=== PATIENT | female | born 1980 | race Caucasian/White ===

== ENCOUNTER 2018-07-02 19:06 | Emergency (ER) | payer OTHER, SELFPAY ==
[2018-07-02 19:09] VITALS: BP 118/72; PULSE 96; RESP 19; TEMP 37.7; O2SAT 94; BMI 33.8
--- NOTE | 2018-07-02 19:59 | ED.URI ---
HPI - URI/Sore Throat General Chief Complaint: Upper Respiratory Symptoms Stated Complaint: Thinks strep throat Time Seen by Provider: 07/02/18 19:09 Source: patient Mode of arrival: ambulatory Limitations: no limitations History of Present Illness HPI Narrative: This 38-year-old female was sent from walking clinic concerned for possible peritonsillar abscess. She developed onset of sore throat 2 days ago which has progressively worsened, to the point that she can take fluids but has not been able to swallow solid foods today. They were not able to get a strep swab or give oral steroids or antibiotics because she is not able to open her mouth well enough or swallow. She states that she has had fever up to 101 at home since yesterday. She does have nasal congestion. She has body aches all over. She denies any sinus pain or ear ache. She denies any cough, wheeze, chest pain or dyspnea. She denies any recent travel or known exposures. She did have her flu vaccine. She denies any possibility of as IUD is in place. Related Data Previous Rx's Medication Instructions Recorded clindamycin HCl 300 mg PO Q6H 7 Days #28 cap 07/02/18 dexamethasone 4 mg PO DAILY #5 tab 07/02/18 Allergies Allergy/AdvReac Type Severity Reaction Status Date / Time Penicillins [PENICILLINS] AdvReac Mild VOMITING Unverified 07/02/18 18:36 Review of Systems Review of Systems All systems reviewed & are unremarkable except as noted in HPI and below PFSH Surgical History History of (Chronic) History of failed repair of rotator cuff (Chronic) History of repair of left rotator cuff (Chronic) Social History Smoking Status: Current every day smoker Comment: occasional ETOH Exam Narrative Exam Narrative: GENERAL APPEARANCE: Patient sitting comfortably, in no distress. initially voice is somewhat muffled, normal at discharge. HEAD: No sinus TTP. EYES: PERRL, EOMI. EARS: Normal auditory canals, TMS intact with normal light reflexes. ORAL CAVITY: Normal oropharynx. THROAT: On initial exam only able to visualize a portion of the tonsils due to patient's inability to fully open her mouth, left is obviously enlarged and erythematous. Following steroid, able to visualize more of the tonsil which is enlarged, erythematous, without exudate, the portion of the uvula I can visualize appears midline NECK/THYROID: Neck supple, full range of motion, no cervical lymphadenopathy. LUNGS: Clear to auscultation bilaterally, clear to percussion, no cough on exam. HEART: RRR without murmur, nl S1, S2, no S3 or S4. Initial Vital Signs Initial Vital Signs: Vital Signs Temperature 99.9 F H 07/02/18 19:09 Pulse Rate 96 H 07/02/18 19:09 Respiratory Rate 19 07/02/18 19:09 Blood Pressure 118/72 07/02/18 19:09 Pulse Oximetry 94 07/02/18 19:09 Course Additional Information: Patient is feeling markedly improved at the time of discharge, able to speak and swallow comfortably. Still unable to quite fully visualized her oropharynx well tonight, but explained I suspect that there may not be an abscess, more just severe strep throat. I did advise follow-up with ENT tomorrow for recheck as I suspect swelling will continue to improve. She was given a dose of clindamycin for morning and will case picker prescriptions for this and dexamethasone tomorrow. She agreed to return if any acutely worsening symptoms again in the interim. Orders Ordered: ED Orders 07/02/18 19:55 Complete Blood Count AUTO DIFF Stat Comprehensive Metabolic Panel Stat Influenza A and B by PCR Rapid Stat Lactate (Lactic Acid) Stat Strep Grp A by PCR Rapid Stat Discontinued Medications Clindamycin HCl (Cleocin) 300 mg PO NOW ONE Stop: 07/02/18 21:56 Last Admin: 07/02/18 22:01 Dose: 300 mg Clindamycin Phosphate (Cleocin) 600 mg in 50 mls @ 50 mls/hr IV NOW ONE Stop: 07/02/18 21:09 Last Infusion: 07/02/18 21:35 Dose: 0 mls/hr Admin: 07/02/18 20:26 Dose: 50 mls/hr Dexamethasone 20 mg/ Sodium (Chloride) 52 mls @ 208 mls/hr IV NOW ONE Stop: 07/02/18 20:11 Last Infusion: 07/02/18 20:43 Dose: 0 mls/hr Admin: 07/02/18 20:26 Dose: 208 mls/hr Sodium Chloride (Normal Saline 0.9%) 1,000 mls @ 1,000 mls/hr IV BOLUS ONE Stop: 07/02/18 21:09 Last Infusion: 12/06/18 22:11 Dose: 0 mls/hr Admin: 07/02/18 20:26 Dose: 1,000 mls/hr Vital Signs - 8 hr 07/02/18 19:09 07/02/18 22:11 Temperature 99.9 F H 98.7 F Pulse Rate 96 H 88 Respiratory Rate 19 Blood Pressure 118/72 117/58 L Pulse Oximetry 94 97 MDM - URI/Sore Throat Lab Data Result diagrams: 07/02/18 19:55 07/02/18 19:55 Lab Results 07/02/18 07/02/18 07/02/18 Range/Units 19:55 19:55 19:55 WBC 17.3 H (4.5-11.0) X10^3/uL RBC 4.85 (4.0-5.2) X10^6/uL Hgb 14.5 (12.0-16.0) g/dL Hct 43.5 (36-46) % MCV 89.6 (80-100) fL MCH 30.0 (26-34) PG MCHC 33.5 (30-36) % RDW 13.6 (11.6-14.8) % Plt Count 269 (150-400) X10^3/uL Neut % (Auto) 76.2 H (50-75) % Lymph % (Auto) 15.4 L (25-40) % [place] % (Auto) 7.7 (3-14) % Eos % (Auto) 0.2 L (2-4) % Baso % (Auto) 0.5 (0-2) % Neut # (Auto) 15183 H (5947-0834) /uL Sodium 140 (137-145) mmol/L Potassium 3.6 (3.4-5.1) mmol/L Chloride 103 (98-107) mmol/L Carbon Dioxide 25 (22-32) mmol/L BUN 15 (7-17) mg/dL Creatinine 0.50 L (0.52-1.04) mg/dL Estimated GFR > 60.0 (>60) mL/min BUN/Creatinine Ratio 30.0 H (6-22) Glucose 87 (70-100) mg/dL Lactate 0.7 (0.7-2.1) mmol/L Calcium 9.6 (8.4-10.2) mg/dL Total Bilirubin 0.7 (0.2-1.3) mg/dL AST 15 (14-36) IU/L ALT 23 (9-52) IU/L Alkaline Phosphatase 72 (38-126) U/L Total Protein 8.0 (6.3-8.2) g/dL Albumin 4.6 (3.5-5.0) g/dL Globulin 3.4 (1.7-4.1) g/dL Albumin/Globulin Ratio 1.4 (1.0-2.8) Influenza A & B (PCR) (Negative) Group A Strep (PCR) 07/02/18 Range/Units 19:55 WBC (4.5-11.0) X10^3/uL RBC (4.0-5.2) X10^6/uL Hgb (12.0-16.0) g/dL Hct (36-46) % MCV (80-100) fL MCH (26-34) PG MCHC (30-36) % RDW (11.6-14.8) % Plt Count (150-400) X10^3/uL Neut % (Auto) (50-75) % Lymph % (Auto) (25-40) % [place] % (Auto) (3-14) % Eos % (Auto) (2-4) % Baso % (Auto) (0-2) % Neut # (Auto) (7475-8951) /uL Sodium (137-145) mmol/L Potassium (3.4-5.1) mmol/L Chloride (98-107) mmol/L Carbon Dioxide (22-32) mmol/L BUN (7-17) mg/dL Creatinine (0.52-1.04) mg/dL Estimated GFR (>60) mL/min BUN/Creatinine Ratio (6-22) Glucose (70-100) mg/dL Lactate (0.7-2.1) mmol/L Calcium (8.4-10.2) mg/dL Total Bilirubin (0.2-1.3) mg/dL AST (14-36) IU/L ALT (9-52) IU/L Alkaline Phosphatase (38-126) U/L Total Protein (6.3-8.2) g/dL Albumin (3.5-5.0) g/dL Globulin (1.7-4.1) g/dL Albumin/Globulin Ratio (1.0-2.8) Influenza A & B (PCR) Negative (Negative) Group A Strep (PCR) Positive H Discharge Plan Departure Patient Disposition: Home Clinical Impression: Abscess, peritonsillar, Strep throat Discharge Date/Time: 07/02/18 22:13 Interventions: ED Discharge Assessment Last Done: 07/02/18 22:11 Instructions: DI for Strep Throat, DI for Peritonsillar Abscess -- Adult Activity Restrictions/Additional Instructions: We have treated you for an abscess next to your tonsil tonight. It has been difficult to get a good look at your throat due to the pain and swelling . Since you are doing better, you can return home tonight. I have ordered a dose of antibiotic for you to take 1st thing in the morning, then please case picker your prescriptions at the pharmacy to continue. Please call [facility] 1st thing in the morning and let them know you were seen in the emergency room for peritonsillar abscess and need to follow up tomorrow. I have given you Dr. López' name since he is most often in [place], but you can see any of his colleagues. Remain off of work tomorrow. Your throat is looking better tonight with treatment and this may not be an abscess (you may not need any other treatment), but I would like you to have it checked tomorrow. you should return as we talked about if you have any acutely worsening symptoms again or new symptoms such as difficulty breathing. Prescriptions: New clindamycin HCl 300 mg capsule 300 mg PO Q6H 7 Days Qty: 28 RF: 0 dexamethasone 4 mg tablet 4 mg PO DAILY Qty: 5 RF: 0 Referrals: Miguel Nettles MD [Primary Care Provider] - Steven López MD [Physician] - Stand Alone Forms: Work Release Note
[2018-07-02 20:06] LABS: Add Manual Diff / Slide Review NO; Basophils Percent Auto 0.5 % (0-2); Eosinophils Percent Auto 0.2 % (2-4); Hematocrit 43.5 % (36-46); Hemoglobin 14.5 g/dL (12.0-16.0); Lymphocytes Percent Auto 15.4 % (25-40); Mean Corpuscular HGB Conc 33.5 % (30-36); Mean Corpuscular Volume 89.6 fL (80-100); Monocytes Percent Auto 7.7 % (3-14); Neutrophils Absolute Auto 13200 /uL (3000-5900); Neutrophils Percent Auto 76.2 % (50-75); Platelet Count 269 X10^3/uL (150-400); Red Blood Cell Count 4.85 X10^6/uL (4.0-5.2); Red Cell Distribution Width 13.6 % (11.6-14.8); White Blood Cell Count 17.3 X10^3/uL (4.5-11.0)
[2018-07-02 20:20] LABS: Alanine Aminotransferase 23 IU/L (9-52); Albumin 4.6 g/dL (3.5-5.0); Alkaline Phosphatase 72 U/L (38-126); Aspartate Aminotransferase 15 IU/L (14-36); Bilirubin Total 0.7 mg/dL (0.2-1.3); Blood Urea Nitrogen 15 mg/dL (7-17); Calcium 9.6 mg/dL (8.4-10.2); Carbon Dioxide 25 mmol/L (22-32); Chloride 103 mmol/L (98-107); Estimated Glomerular Filt Rate > 60.0 mL/min (>60); Glucose 87 mg/dL (70-100); Lactate (Lactic Acid) 0.7 mmol/L (0.7-2.1); Potassium 3.6 mmol/L (3.4-5.1); Sodium 140 mmol/L (137-145)
[2018-07-02 20:21] LABS: Albumin Globulin Ratio 1.4 (1.0-2.8); Globulin 3.4 g/dL (1.7-4.1); HEMOLYSIS < 15 (0-50)
[2018-07-02 20:24] LABS: Strep Grp A by PCR Rapid Positive
[2018-07-02] MEDS: SODIUM CHLORIDE 0.9% 1,000 ML 1000 ML IV (20:26)
[2018-07-02] MEDS: CLINDAMYCIN 600 MG/50 ML PIGGYBACK 50 MG IV (20:26)
[2018-07-02] MEDS: DEXAMETHASONE 20 MG in SODIUM CHLORIDE 0.9% 50 ML 208 ML IV (20:26)
[2018-07-02 20:28] LABS: Influenza A and B by PCR Rapid Negative (Negative)
[2018-07-02] MEDS: CLINDAMYCIN 150 MG CAPSULE 300 MG PO (22:01)
[2018-07-02 22:11] VITALS: BP 117/58; PULSE 88; TEMP 37.1; O2SAT 97
== END 2018-07-02 22:13 | disposition home or self-care (01) ==
PROVIDERS: Emergency Provider Internal Medicine; Family Provider Family Medicine; PCP Family Medicine
DX: J36 Peritonsillar abscess (principal)
CPT/HCPCS: 36591; 80053; 83605; 85025; 87400; 87651; 96361; 96365; 96368; 99283; 99284; J1100

== ENCOUNTER 2019-07-23 22:44 | Emergency (ER) | payer OTHER, SELFPAY ==
[2019-07-23 22:50] VITALS: BP 131/61; PULSE 77; RESP 15; TEMP 36.9; O2SAT 97; BMI 31.8
[2019-07-23] MEDS: SODIUM CHLORIDE 0.9% 1,000 ML 1000 ML IV (23:15)
[2019-07-23] MEDS: KETOROLAC 60 MG/2 ML VIAL 30 MG IV (23:15)
[2019-07-23] MEDS: ONDANSETRON 4 MG/2 ML INJ IV (23:15)
[2019-07-23 23:16] LABS: Add Manual Diff / Slide Review NO; Basophils Absolute Auto 100 /uL (0-100); Basophils Percent Auto 0.8 % (0-2); Eosinophils Absolute Auto 100 /uL (0-450); Eosinophils Percent Auto 0.6 % (2-4); Hemoglobin 13.5 g/dL (12.0-16.0); Lymphocytes Absolute Auto 4800 /uL (1100-4500); Lymphocytes Percent Auto 33.6 % (25-40); Mean Corpuscular HGB Conc 34.7 % (30-36); Mean Corpuscular Hemoglobin 31.2 PG (26-34); Mean Corpuscular Volume 89.7 fL (80-100); Monocytes Absolute Auto 1000 /uL (0-900); Neutrophils Absolute Auto 8200 /uL (1500-7000); Platelet Count 251 X10^3/uL (150-400); Red Blood Cell Count 4.34 X10^6/uL (4.0-5.2); White Blood Cell Count 14.1 X10^3/uL (4.5-11.0)
[2019-07-23 23:26] LABS: Alanine Aminotransferase 13 IU/L (<35); Albumin 4.3 g/dL (3.5-5.0); Albumin Globulin Ratio 1.5 (1.0-2.8); Alkaline Phosphatase 69 U/L (38-126); Aspartate Aminotransferase 17 IU/L (14-36); BUN Creatinine Ratio 22.5 (6-22); Bilirubin Total 0.3 mg/dL (0.2-1.3); Blood Urea Nitrogen 18 mg/dL (7-17); Carbon Dioxide 24 mmol/L (22-32); Chloride 104 mmol/L (98-107); Estimated Glomerular Filt Rate > 60.0 mL/min (>60); Globulin 2.9 g/dL (1.7-4.1); Glucose 104 mg/dL (70-100); HEMOLYSIS < 15 (0-50); Potassium 3.4 mmol/L (3.4-5.1); Sodium 138 mmol/L (137-145); Total Protein 7.2 g/dL (6.3-8.2)
--- NOTE | 2019-07-24 00:16 | PC.NURSE ---
Pt has hx of kidney stones 2 years ago,feels similar today
[2019-07-24] MEDS: ONDANSETRON 4 MG/2 ML INJ IV (00:28)
[2019-07-24] MEDS: LIDOCAINE 2% 6.1 ML in SODIUM CHLORIDE 0.9% 50 ML 336.6 ML IV (00:28)
--- NOTE | 2019-07-24 01:07 | DI.CT.S_ITS ---
PROCEDURE: CT ABDOMEN PELVIS W CON INDICATIONS: severe Right flank pain. Different than stones TECHNIQUE: After the administration of intravenous contrast, 5 mm thick sections acquired from the diaphragm to the symphysis. 5 mm coronal and sagittal reformats were acquired. For radiation dose reduction, the following was used: automated exposure control, adjustment of mA and/or kV according to patient size. COMPARISON: [facility], CT, KIDNEY/ URETER/BLADDER, 12/06/2013, 1:37. FINDINGS: Image quality: Excellent. ABDOMEN: Lung bases: Lung bases are clear. Heart size is normal. Solid organs: Liver is normal in size and enhancement. Gallbladder has been removed. Biliary system is non dilated. Pancreas enhances normally. Spleen is normal in size and enhancement. No adrenal nodules. There is an obstructing 4 mm stone seen within the distal right ureter, as on series 2 image 71. There is associated mild to moderate right-sided hydroureter and hydronephrosis. The kidneys enhance asymmetrically, with delayed enhancement on the right side. There is right-sided perinephric fat stranding. The limits of this contrast-enhanced examination, no nonobstructing renal stones can be seen. There is no left-sided hydronephrosis. Peritoneum and bowel: Bowel loops demonstrate normal wall thickness and caliber. No free fluid or air. Nodes and vessels: No retroperitoneal or mesenteric adenopathy by size criteria. Aorta and inferior vena cava are normal in size. Miscellaneous: No ventral hernias. PELVIS: Genitourinary: Bladder wall thickness is normal. An IUD is seen at its expected location. Cystic changes are seen of the ovaries, which are considered to be within physiologic limits. Miscellaneous: No inguinal hernias or adenopathy. Bones: No suspicious bony lesions. No vertebral body compression fractures. IMPRESSION: 4 mm obstructing stone seen within the distal right ureter, with associated hydroureter, hydronephrosis, and perinephric stranding. Incidental note is made of: Cholecystectomy IUD Note: No significant discrepancy from the preliminary report. Dictated by: Hernesto Pal M.D. on 07/24/2019 at 8:51 Transcribed by: KATHARINA on 07/24/2019 at 9:01 Approved by: Hernesto Pal M.D. on 07/24/2019 at 9:10
[2019-07-24 01:17] VITALS: BP 119/59; PULSE 74; RESP 16; TEMP 36.7; O2SAT 98
[2019-07-24] MEDS: HYDROMORPHONE 0.5 MG INJ IV (02:00)
[2019-07-24] MEDS: ONDANSETRON 4 MG ODT PREPACK 1 BOTTLE MISC (02:27)
[2019-07-24] MEDS: HYDROCODONE/ACET 5/325 PREPACK 1 BOTTLE MISC (02:27)
[2019-07-24 02:29] VITALS: BP 120/70; PULSE 74; RESP 18; O2SAT 96
--- NOTE | 2019-07-24 21:41 | ED_ITS ---
HPI - Female Genitourinary General Chief complaint: Urogenital-Female Stated complaint: PASSING KIDNEY STONE RIGHT SIDE Time Seen by Provider: 07/23/19 22:52 Source: patient Mode of arrival: Wheelchair Limitations: no limitations History of Present Illness HPI Narrative: 39-year-old femaleDaily smoker with history of kidney stones presents to the emergency department with a chief complaint of sudden onset right flank pain consistent with prior kidney stones. She denies fever or chills but does admit to some nausea. She states the pain largely seems to have a mind of its own but does seem to be a bit worse when she moved. It started in her back and radiates around her right flank MD Complaint: other Onset (ago): hour(s) Location: RLQ Female Urogenital Radiation: R Flank Severity: moderate Quality: Burning Duration: intermittent Relieving factors: none Exacerbating factors: movement Urinary symptoms: Flank Pain Patient : No Related Data Previous Rx's Medication Instructions Recorded hydrocodone-acetaminophen 1 tab PO Q4-6H PRN #10 tab 07/24/19 ketorolac 10 mg PO Q6H PRN #14 tab 07/24/19 ondansetron 4 mg PO TID-QID PRN #10 tab 07/24/19 tamsulosin [Flomax] 0.4 mg PO DAILY #10 cap 07/24/19 Allergies Allergy/AdvReac Type Severity Reaction Status Date / Time Penicillins [PENICILLINS] AdvReac Mild VOMITING Verified 07/23/19 22:55 Review of Systems Constitutional Constitutional: Denies chills, Denies fatigue, Denies fever(s), Denies frequent falls, Denies lethargy and Denies weakness Eyes Eyes: Denies change in vision, Denies eye discharge, Denies irritation and Denies loss of vision ENT Ears, Nose, Mouth, and Throat: Denies change in voice, Denies dizziness, Denies neck pain, Denies sore throat and Denies throat swelling Cardiovascular Cardiovascular: Denies chest pain, Denies irregular heart rhythm, Denies lightheadedness, Denies palpitations, Denies dyspnea, Denies dyspnea on exertion and Denies orthopnea Respiratory Respiratory: Denies cough, Denies dyspnea, Denies dyspnea on exertion and Denies wheezing Gastrointestinal Gastrointestinal: Denies abdominal pain, Denies change in bowel habits, Denies diarrhea, Denies nausea and Denies vomiting Genitourinary Genitourinary: Denies hematuria, Reports flank pain, Denies urinary incontinence and Denies urinary urgency Musculoskeletal Musculoskeletal: Denies back pain, Denies muscle weakness, Denies neck pain, Denies numbness and Denies tingling Integumentary/Breasts Skin/Breast: Denies pruritus, Denies erythema, Denies rash and Denies wounds Neurologic Neurologic: Denies behavioral changes, Denies confusion, Denies dizziness, Denies frequent falls, Denies loss of vision, Denies numbness, Denies tingling and Denies weakness Psychiatric Psychiatric: Denies anxiety, Denies behavioral changes, Denies confusion, Denies depression, Denies homicidal ideation and Denies suicidal ideation Endocrine Endocrine: Denies fatigue, Denies flushing and Denies palpitations Hematologic/Lymphatic Hematologic/Lymphatic: Denies easy bruising Allergic/Immunologic Allergic/Immunologic: Denies urticaria, Denies throat swelling and Denies wheezing Patient History Surgical History History of (Chronic) History of failed repair of rotator cuff (Chronic) History of repair of left rotator cuff (Chronic) alcohol intake frequency: a few times a month Substance Use Type: does not use Exam Narrative Exam Narrative: GENERAL: [39] year old patient appears stated age. Well- nourished, well-developed patient, in moderate distress, laying on her side, rocking back and forth HEAD: Atraumatic. Normocephalic. EYES: Pupils equal round and reactive. Extraocular motions intact. No scleral icterus. No injection or drainage. ENT: Nose without bleeding, purulent drainage. Throat without erythema, tonsillar hypertrophy or exudate. Airway patent. NECK: Trachea midline. Non tender CARDIOVASCULAR: Regular rate and rhythm without murmurs, gallops, or rubs. RESPIRATORY: Clear to auscultation. Breath sounds equal bilaterally. No wheezes, rales, or rhonchi. GASTROINTESTINAL: Abdomen soft, non-tender, nondistended. EXTREMITIES: No edema or joint tenderness. BACK: Mild right CVA tenderness NEURO: AOx3. SKIN: No rash or erythema of visible areas Initial Vital Signs Initial Vital Signs: Vital Signs Temperature 98.4 F 07/23/19 22:50 Pulse Rate 77 07/23/19 22:50 Respiratory Rate 15 07/23/19 22:50 Blood Pressure 131/61 07/23/19 22:50 Pulse Oximetry 97 07/23/19 22:50 Course Orders Ordered: Discontinued Medications Hydrocodone Bitart/Acetaminophen (Vicodin 5/325 Prepack) 1 bottle MISC SEEINSTR ONE Stop: 07/24/19 02:16 Last Admin: 07/24/19 02:27 Dose: 1 bottle Documented by: CHARLES Hydromorphone HCl (Dilaudid) 0.5 mg IV NOW ONE Stop: 07/24/19 01:47 Last Admin: 07/24/19 02:00 Dose: 0.5 mg Documented by: CHARLES Sodium Chloride (Normal Saline 0.9%) 1,000 mls @ 1,000 mls/hr IV BOLUS ONE Stop: 07/24/19 00:00 Last Infusion: 07/24/19 00:08 Dose: 0 mls/hr Documented by: Admin: 07/23/19 23:15 Dose: 1,000 mls/hr Documented by: TAJ Lidocaine HCl 6.1 ml/ Sodium (Chloride) 56.1 mls @ 336.6 mls/hr IV NOW ONE Stop: 07/24/19 00:24 Last Infusion: 07/24/19 00:47 Dose: 0 mls/hr Documented by: Admin: 07/24/19 00:28 Dose: 336.6 mls/hr Documented by: TAJ Ketorolac Tromethamine (Toradol) 30 mg IV NOW ONE Stop: 07/23/19 23:02 Last Admin: 07/23/19 23:15 Dose: 30 mg Documented by: TAJ Ondansetron HCl (Zofran) 4 mg IV NOW ONE Stop: 07/23/19 23:02 Last Admin: 07/23/19 23:15 Dose: 4 mg Documented by: TAJ Ondansetron HCl (Zofran) 4 mg IV NOW ONE Stop: 07/24/19 00:24 Last Admin: 07/24/19 00:28 Dose: 4 mg Documented by: TAJ Ondansetron HCl (Zofran Odt Prepack) 1 bottle MISC SEEINSTR ONE Stop: 07/24/19 02:16 Last Admin: 07/24/19 02:27 Dose: 1 bottle Documented by: CHARLES MDM - Female Genitourinary Lab Data Result diagrams: 07/23/19 23:07 07/23/19 23:07 Labs: Lab Results 07/23/19 07/23/19 Range/Units 23:07 23:07 WBC 14.1 H (4.5-11.0) X10^3/uL RBC 4.34 (4.0-5.2) X10^6/uL Hgb 13.5 (12.0-16.0) g/dL Hct 39.0 (36-46) % MCV 89.7 (80-100) fL MCH 31.2 (26-34) PG MCHC 34.7 (30-36) % RDW 13.0 (11.6-14.8) % Plt Count 251 (150-400) X10^3/uL Neut % (Auto) 58.0 (50-75) % Lymph % (Auto) 33.6 (25-40) % [place] % (Auto) 7.0 (3-14) % Eos % (Auto) 0.6 L (2-4) % Baso % (Auto) 0.8 (0-2) % Neut # (Auto) 8200 H (7621-2093) /uL Lymph # (Auto) 4800 H (5198-1562) /uL [place] # (Auto) 1000 H (0-900) /uL Eos # (Auto) 100 (0-450) /uL Baso # (Auto) 100 (0-100) /uL Sodium 138 (137-145) mmol/L Potassium 3.4 (3.4-5.1) mmol/L Chloride 104 (98-107) mmol/L Carbon Dioxide 24 (22-32) mmol/L BUN 18 H (7-17) mg/dL Creatinine 0.80 (0.52-1.04) mg/dL Estimated GFR > 60.0 (>60) mL/min BUN/Creatinine Ratio 22.5 H (6-22) Glucose 104 H (70-100) mg/dL Calcium 9.0 (8.4-10.2) mg/dL Total Bilirubin 0.3 (0.2-1.3) mg/dL AST 17 (14-36) IU/L ALT 13 (<35) IU/L Alkaline Phosphatase 69 (38-126) U/L Total Protein 7.2 (6.3-8.2) g/dL Albumin 4.3 (3.5-5.0) g/dL Globulin 2.9 (1.7-4.1) g/dL Albumin/Globulin Ratio 1.5 (1.0-2.8) Point of Care Testing Test Results Negative Urine Dip Bedside Urine Glucose Negative Bedside Urine Bilirubin - Negative Bedside Urine Ketone +/- 5 Urine Specific [place] 1.030 Bedside Urine Occult Blood - Negative Bedside Urine pH 6.0 Bedside Urine Protein +/- 15 Bedside Urine Urobilinogen - Negative Bedside Urine Nitrite - Negative Bedside Urine Leukocytes - Negative Esterase Imaging Data CT scan - abdomen/pelvis: Radiologist's Impression: [address] [address] [address] Scan Report Signed Patient: Ermelinda Ramirez CHAVEZ#: [id number] : 1980Acct:[id number] Age/Sex: 39 / FDate of Service: 07/24/19 Loc: ED Accession Number: [id number] Procedure: CT abdomen pelvis w con Ordering Provider: Miles Bergeron D.O. PROCEDURE: CT ABDOMEN PELVIS W CON INDICATIONS: severe Right flank pain. Different than stones TECHNIQUE: After the administration of intravenous contrast, 5 mm thick sections acquired from the diaphragm to the symphysis. 5 mm coronal and sagittal reformats were acquired. For radiation dose reduction, the following was used: automated exposure control, adjustment of mA and/or kV according to patient size. COMPARISON: [facility], CT, KIDNEY/ URETER/BLADDER, 12/06/2013, 1:37. FINDINGS: Image quality: Excellent. ABDOMEN: Lung bases: Lung bases are clear. Heart size is normal. Solid organs: Liver is normal in size and enhancement. Gallbladder has been removed. Biliary system is non dilated. Pancreas enhances normally. Spleen is normal in size and enhancement. No adrenal nodules. There is an obstructing 4 mm stone seen within the distal right ureter, as on series 2 image 71. There is associated mild to moderate right-sided hydroureter and hydronephrosis. The kidneys enhance asymmetrically, with delayed enhancement on the right side. There is right-sided perinephric fat stranding. The limits of this contrast-enhanced examination, no nonobstructing renal stones can be seen. There is no left-sided hydronephrosis. Peritoneum and bowel: Bowel loops demonstrate normal wall thickness and caliber. No free fluid or air. Nodes and vessels: No retroperitoneal or mesenteric adenopathy by size criteria. Aorta and inferior vena cava are normal in size. Miscellaneous: No ventral hernias. PELVIS: Genitourinary: Bladder wall thickness is normal. An IUD is seen at its expected location. Cystic changes are seen of the ovaries, which are considered to be within physiologic limits. Miscellaneous: No inguinal hernias or adenopathy. Bones: No suspicious bony lesions. No vertebral body compression fractures. IMPRESSION: 4 mm obstructing stone seen within the distal right ureter, with associated hydroureter, hydronephrosis, and perinephric stranding. Incidental note is made of: Cholecystectomy IUD Note: No significant discrepancy from the preliminary report. Dictated by: Hernesto Pal M.D. on 07/24/2019 at 8:51 Transcribed by: KATHARINA on 07/24/2019 at 9:01 Approved by: Hernesto Pal M.D. on 07/24/2019 at 9:10 Discharge Plan Departure Patient Disposition: Home Clinical Impression: Kidney stone on right side Discharge Date/Time: 07/24/19 02:30 Instructions: DI for Kidney Stones Activity Restrictions/Additional Instructions: *You have been diagnosed with [right-sided kidney stone, 3 mm] *What to do: *Take medications as directed *Follow up with your primary care provider in 2-3 days, call for an appointment. Let them know you were seen in the Emergency Department and that we ask that you be seen in follow up *Return to ER if you should have any new, worsening or concerning symptoms, such as [fever over 101 F, shaking chills, worsening pain, persistent vomiting or other bothersome symptoms] Prescriptions: New hydrocodone-acetaminophen 5-325 mg tablet 1 tab PO Q4-6H PRN (Reason: pain) Qty: 10 RF: 0 ketorolac 10 mg tablet 10 mg PO Q6H PRN (Reason: pain) Qty: 14 RF: 0 tamsulosin [Flomax] 0.4 mg capsule 0.4 mg PO DAILY Qty: 10 RF: 0 ondansetron 4 mg tablet,disintegrating 4 mg PO TID-QID PRN (Reason: nausea and vomiting) Qty: 10 RF: 0 Referrals: Alisa Edmondson MD [Non-Staff] - Miguel Nettles MD [Primary Care Provider] -
== END 2019-07-24 02:30 | disposition home or self-care (01) ==
PROVIDERS: Emergency Provider Emergency Medicine; Family Provider Family Medicine; PCP Family Medicine
DX: N20.0 Calculus of kidney (principal)
CPT/HCPCS: 36415; 74177; 80053; 81003; 81025; 85025; 96361; 96365; 96375; 96376; 99283; 99284; J1170; J1885; J2405; Q9967

== ENCOUNTER 2019-07-25 10:57 | Emergency (ER) | payer OTHER, SELFPAY ==
[2019-07-25 11:02] VITALS: BP 133/61; PULSE 74; RESP 16; TEMP 36.6; O2SAT 97; BMI 31.8
--- NOTE | 2019-07-25 11:23 | ED_ITS ---
HPI - Female Genitourinary <JARROD Orosco - Last Filed: 07/25/19 20:58> General Chief complaint: Urogenital-Female Stated complaint: passing a kidney stone with vomiting cant urinate Time Seen by Provider: 07/25/19 11:00 Mode of arrival: Ambulatory History of Present Illness HPI Narrative: 39yo female presents to the emergency department today complaining of increasing right flank pain. She was diagnosed with a 4 mm obstructing stone in the distal right ureter with hydroureter, hydronephrosis, and perinephric stranding three days ago in the emergency department. She was discharged with nausea medication, pain medication and tamsulosin. However, she reports yesterday the pain was improving but today the pain has been incr easingly worse. She reports increased nausea with vomiting. She denies abdominal pain, fevers, chills, chest pain, shortness of breath, or other concerns. She states she has a history of renal stones in the past but has never needed lithotripsy. Related Data Previous Rx's Medication Instructions Recorded hydrocodone-acetaminophen 1 tab PO Q4-6H PRN #10 tab 07/24/19 ketorolac 10 mg PO Q6H PRN #14 tab 07/24/19 ondansetron 4 mg PO TID-QID PRN #10 tab 07/24/19 tamsulosin [Flomax] 0.4 mg PO DAILY #10 cap 07/24/19 Allergies Allergy/AdvReac Type Severity Reaction Status Date / Time Penicillins [PENICILLINS] AdvReac Mild VOMITING Verified 07/23/19 22:55 Review of Systems <JARROD Orosco - Last Filed: 07/25/19 20:58> Review of Systems Narrative: REVIEW OF SYSTEMS: GENERAL: Denies fever, chills, malaise, or wt. loss. HENT: No head trauma, sore throat, or dysphagia. EYES: No loss of vision, double vision, eye pain, or irritation. CARDIOVASCULAR: No chest pain, palpitations, or orthopnea. RESPIRATORY: No shortness of breath or cough. GASTROINTESTINAL: Denies abdominal pain. GENITOURINARY: Reports right flank pain, see HPI. No urinary incontinence, hesitancy, frequency, or dysuria. No vaginal discharge or dyspareunia. Denies concerns for STIs MUSCULOSKELETAL: No pain, weakness, or trauma. INTEGUMENTARY: No rash, lesions, or pruritus. NEURO: No numbness, tingling, memory loss, confusion, or headaches. PSYCH: No behavior or mood changes. Patient History <Mia Allen TOBACCO DRYING MACHINE OPERATOR - Last Filed: 07/25/19 20:58> Medical History (Updated 07/26/19 @ 20:54 by Chayito Villarreal) Irregular menstrual cycle (Chronic ~1996) Surgical History (Updated 07/26/19 @ 20:54 by Chayito Villarreal) Anesthesia (Resolved) Avulsion, finger tip (Resolved) History of (Chronic) History of cholecystectomy (Resolved ~01/2003) History of failed repair of rotator cuff (Chronic) History of repair of left rotator cuff (Chronic) Family History (Updated 07/26/19 @ 20:55 by Chayito Villarreal) Grandmother Dementia alcohol intake frequency: a few times a month Substance Use Type: does not use Exam <Mia Allen TOBACCO DRYING MACHINE OPERATOR - Last Filed: 07/25/19 20:58> Initial Vital Signs Initial Vital Signs: Vital Signs Temperature 97.9 F 07/25/19 11:02 Pulse Rate 74 07/25/19 11:02 Respiratory Rate 16 07/25/19 11:02 Blood Pressure 133/61 07/25/19 11:02 Pulse Oximetry 97 07/25/19 11:02 PHYSICAL EXAMINATION: GENERAL: Well groomed, alert, and cooperative. Answers questions promptly and appropriately. Vital signs noted. HENT: Normocephalic, atraumatic. Hearing intact. Oral mucosa is pink and moist. EYES: Conjunctiva pink, sclera white, no periorbital swelling. CARDIOVASCULAR: S1 and S2 sounds normal. Regular rate and rhythm, no murmurs, clicks, or bruits. No pedal edema. RESPIRATORY: Normal respiratory rate, trachea midline, airway patent. No stridor, nasal flaring or accessory muscle use. Lungs are clear in all stauffer without wheeze, rhonchi, or crackles. GASTROINTESTINAL: Bowel sounds normoactive. Abdomen is soft and non-tender. No organomegaly, no palpable masses. GENITALURINARY: Right flank tenderness. MUSCULOSKELETAL: Normal gait and coordination. Equal tone and mass bilaterally. EXTREMITIES: CMS intact, no pedal edema. SKIN: Warm, dry, soft, appropriate color for ethnicity. No lesions, rashes, or wounds. NEURO: Alert and Oriented X 3. Good coordination. No ataxia, or sensory deficits, or cognitive issues. PSYCH: Appropriate affect and mood. <Jennie Caldwell DO - Last Filed: 07/28/19 07:57> Initial Vital Signs Initial Vital Signs: Vital Signs Temperature 97.9 F 07/25/19 11:02 Pulse Rate 74 07/25/19 11:02 Respiratory Rate 16 07/25/19 11:02 Blood Pressure 133/61 07/25/19 11:02 Pulse Oximetry 97 07/25/19 11:02 Course <Mia AllenJARROD - Last Filed: 07/25/19 20:58> Course Course Narrative: Patient was given a L of fluids in the emergency department, before she was given pain meds she got up to walk to the bathroom and states I think I passed a stone. Patient states her pain has completely resolved. She declined pain medication at this time. Orders Ordered: Discontinued Medications Hydromorphone HCl (Dilaudid) 0.5 mg IV NOW ONE Stop: 07/25/19 11:22 Last Admin: 07/25/19 13:02 Dose: Not Given Documented by: JOSE Sodium Chloride (Normal Saline 0.9%) 1,000 mls @ 1,000 mls/hr IV BOLUS ONE Stop: 07/25/19 12:19 Last Infusion: 07/25/19 13:01 Dose: 0 mls/hr Documented by: Admin: 07/25/19 12:27 Dose: 1,000 mls/hr Documented by: JOSE Ondansetron HCl (Zofran) 4 mg IV NOW ONE Stop: 07/25/19 11:21 Last Admin: 07/25/19 13:01 Dose: Not Given Documented by: JOSE Consultations Consultation #1: Patient staffed with Dr. Caldwell Vital Signs Vital signs: Vital Signs - 8 hr 07/25/19 13:06 Pulse Rate 70 Respiratory Rate 16 Blood Pressure 111/66 Pulse Oximetry 100 <Jennie Caldwell DO - Last Filed: 07/28/19 07:57> Orders Ordered: Discontinued Medications Hydromorphone HCl (Dilaudid) 0.5 mg IV NOW ONE Stop: 07/25/19 11:22 Last Admin: 07/25/19 13:02 Dose: Not Given Documented by: JOSE Sodium Chloride (Normal Saline 0.9%) 1,000 mls @ 1,000 mls/hr IV BOLUS ONE Stop: 07/25/19 12:19 Last Infusion: 07/25/19 13:01 Dose: 0 mls/hr Documented by: Admin: 07/25/19 12:27 Dose: 1,000 mls/hr Documented by: JOSE Ondansetron HCl (Zofran) 4 mg IV NOW ONE Stop: 07/25/19 11:21 Last Admin: 07/25/19 13:01 Dose: Not Given Documented by: JOSE Vital Signs Vital signs: Vital Signs - 8 hr 07/25/19 13:06 Pulse Rate 70 Respiratory Rate 16 Blood Pressure 111/66 Pulse Oximetry 100 MDM - Female Genitourinary <JARROD Orosco - Last Filed: 07/25/19 20:58> Medical Records Attestation: I reviewed the patient's medical records. Lab Data Attestation: I reviewed the patient's lab results. Result diagrams: 07/25/19 12:18 07/25/19 12:18 Labs: Lab Results 07/25/19 07/25/19 07/25/19 Range/Units 12:18 12:18 12:30 WBC 12.8 H (4.5-11.0) X10^3/uL RBC 4.35 (4.0-5.2) X10^6/uL Hgb 13.5 (12.0-16.0) g/dL Hct 39.7 (36-46) % MCV 91.5 (80-100) fL MCH 31.0 (26-34) PG MCHC 33.9 (30-36) % RDW 12.9 (11.6-14.8) % Plt Count 229 (150-400) X10^3/uL Neut % (Auto) 79.7 H D (50-75) % Lymph % (Auto) 12.5 L D (25-40) % Jennings % (Auto) 6.9 (3-14) % Eos % (Auto) 0.4 L (2-4) % Baso % (Auto) 0.5 (0-2) % Neut # (Auto) 99884 H (4982-3146) /uL Lymph # (Auto) 1600 (5769-5191) /uL Jennings # (Auto) 900 (0-900) /uL Eos # (Auto) 100 (0-450) /uL Baso # (Auto) 100 (0-100) /uL Sodium 139 (137-145) mmol/L Potassium 4.7 D (3.4-5.1) mmol/L Chloride 105 (98-107) mmol/L Carbon Dioxide 28 (22-32) mmol/L BUN 16 (7-17) mg/dL Creatinine 1.00 (0.52-1.04) mg/dL Estimated GFR > 60.0 (>60) mL/min BUN/Creatinine Ratio 16.0 (6-22) Glucose 88 (70-100) mg/dL Calcium 9.1 (8.4-10.2) mg/dL Total Bilirubin 0.6 (0.2-1.3) mg/dL AST 22 (14-36) IU/L ALT 12 (<35) IU/L Alkaline Phosphatase 69 (38-126) U/L Total Protein 7.2 (6.3-8.2) g/dL Albumin 4.1 (3.5-5.0) g/dL Globulin 3.1 (1.7-4.1) g/dL Albumin/Globulin Ratio 1.3 (1.0-2.8) Urine RBC 30-100/hpf H (0-5/HPF) Urine WBC 5-10/hpf H (0-5/HPF) Ur Squamous Epith Cells 1-5 /hpf (0-5/HPF) Amorphous Sediment 2+ Urine Bacteria Moderate (10-30) H (None) Ur Culture Indicated? Specimen cultured Urine Dip Bedside Urine Glucose Negative Bedside Urine Bilirubin - Negative Bedside Urine Ketone - Negative Bedside Urine Occult Blood +++ Bedside Urine pH 6.0 Bedside Urine Protein + 30 Bedside Urine Urobilinogen - Negative Bedside Urine Nitrite - Negative Bedside Urine Leukocytes +/- 15 Esterase MDM Narrative Medical decision making narrative: 39-year-old female with a history of an obstructing 4 mm renal stone, returns emergency department for worsening pain. After administration of fluids patient reported that she believes she passed her stone. Her pain completely resolved. No imaging was done at this time as labs x-ray showed improved renal functioning. Patient still encouraged to follow up with her urologist as scheduled. Return precautions were given for new or worsening symptoms. Patient agreed with plan of care verbalized understanding. <Jennie Caldwell, DO - Last Filed: 07/28/19 07:57> Lab Data Attestation: I reviewed the patient's lab results. Labs: Lab Results 07/25/19 07/25/19 07/25/19 Range/Units 12:18 12:18 12:30 WBC 12.8 H (4.5-11.0) X10^3/uL RBC 4.35 (4.0-5.2) X10^6/uL Hgb 13.5 (12.0-16.0) g/dL Hct 39.7 (36-46) % MCV 91.5 (80-100) fL MCH 31.0 (26-34) PG MCHC 33.9 (30-36) % RDW 12.9 (11.6-14.8) % Plt Count 229 (150-400) X10^3/uL Neut % (Auto) 79.7 H D (50-75) % Lymph % (Auto) 12.5 L D (25-40) % Jennings % (Auto) 6.9 (3-14) % Eos % (Auto) 0.4 L (2-4) % Baso % (Auto) 0.5 (0-2) % Neut # (Auto) 30481 H (2152-7208) /uL Lymph # (Auto) 1600 (3420-0113) /uL Jennings # (Auto) 900 (0-900) /uL Eos # (Auto) 100 (0-450) /uL Baso # (Auto) 100 (0-100) /uL Sodium 139 (137-145) mmol/L Potassium 4.7 D (3.4-5.1) mmol/L Chloride 105 (98-107) mmol/L Carbon Dioxide 28 (22-32) mmol/L BUN 16 (7-17) mg/dL Creatinine 1.00 (0.52-1.04) mg/dL Estimated GFR > 60.0 (>60) mL/min BUN/Creatinine Ratio 16.0 (6-22) Glucose 88 (70-100) mg/dL Calcium 9.1 (8.4-10.2) mg/dL Total Bilirubin 0.6 (0.2-1.3) mg/dL AST 22 (14-36) IU/L ALT 12 (<35) IU/L Alkaline Phosphatase 69 (38-126) U/L Total Protein 7.2 (6.3-8.2) g/dL Albumin 4.1 (3.5-5.0) g/dL Globulin 3.1 (1.7-4.1) g/dL Albumin/Globulin Ratio 1.3 (1.0-2.8) Urine RBC 30-100/hpf H (0-5/HPF) Urine WBC 5-10/hpf H (0-5/HPF) Ur Squamous Epith Cells 1-5 /hpf (0-5/HPF) Amorphous Sediment 2+ Urine Bacteria Moderate (10-30) H (None) Ur Culture Indicated? Specimen cultured Urine Dip Bedside Urine Glucose Negative Bedside Urine Bilirubin - Negative Bedside Urine Ketone - Negative Bedside Urine Occult Blood +++ Bedside Urine pH 6.0 Bedside Urine Protein + 30 Bedside Urine Urobilinogen - Negative Bedside Urine Nitrite - Negative Bedside Urine Leukocytes +/- 15 Esterase MDM Narrative Medical decision making narrative: Patient staffed with myself. Repeat imaging was deferred as patient's renal function appears to be a baseline without any increase. Patient felt that they passed the stone while they were department and urine was cultured. Discharge Plan Departure Patient Disposition: Home Clinical Impression: Kidney stone on right side Discharge Date/Time: 07/25/19 13:10 Instructions: DI for Kidney Stones Activity Restrictions/Additional Instructions: Thank you for entrusting me with your care today. As discussed, please follow-up with the urologist as planned. Continue to drink lots of fluids. Continue to take tamsulosin. You may continue to take pain and nausea medication as needed. Return emergency department if he develops new or worsening symptoms such as f vianca, chills, nausea, vomiting, diarrhea, or other concerns. Prescriptions: No Action hydrocodone-acetaminophen 5-325 mg tablet 1 tab PO Q4-6H PRN (Reason: pain) Qty: 10 RF: 0 ketorolac 10 mg tablet 10 mg PO Q6H PRN (Reason: pain) Qty: 14 RF: 0 tamsulosin [Flomax] 0.4 mg capsule 0.4 mg PO DAILY Qty: 10 RF: 0 ondansetron 4 mg tablet,disintegrating 4 mg PO TID-QID PRN (Reason: nausea and vomiting) Qty: 10 RF: 0 Referrals: Miguel Nettles MD [Primary Care Provider] -
[2019-07-25] MEDS: SODIUM CHLORIDE 0.9% 1,000 ML 1000 ML IV (12:27)
[2019-07-25 12:30] LABS: Add Manual Diff / Slide Review NO; Basophils Absolute Auto 100 /uL (0-100); Basophils Percent Auto 0.5 % (0-2); Eosinophils Absolute Auto 100 /uL (0-450); Eosinophils Percent Auto 0.4 % (2-4); Hematocrit 39.7 % (36-46); Hemoglobin 13.5 g/dL (12.0-16.0); Lymphocytes Absolute Auto 1600 /uL (1100-4500); Lymphocytes Percent Auto 12.5 % (25-40); Mean Corpuscular HGB Conc 33.9 % (30-36); Mean Corpuscular Volume 91.5 fL (80-100); Monocytes Absolute Auto 900 /uL (0-900); Monocytes Percent Auto 6.9 % (3-14); Neutrophils Absolute Auto 10200 /uL (1500-7000); Neutrophils Percent Auto 79.7 % (50-75); Platelet Count 229 X10^3/uL (150-400); Red Blood Cell Count 4.35 X10^6/uL (4.0-5.2); Red Cell Distribution Width 12.9 % (11.6-14.8); White Blood Cell Count 12.8 X10^3/uL (4.5-11.0)
[2019-07-25 12:44] LABS: Alanine Aminotransferase 12 IU/L (<35); Albumin 4.1 g/dL (3.5-5.0); Albumin Globulin Ratio 1.3 (1.0-2.8); Alkaline Phosphatase 69 U/L (38-126); Aspartate Aminotransferase 22 IU/L (14-36); Bilirubin Total 0.6 mg/dL (0.2-1.3); Blood Urea Nitrogen 16 mg/dL (7-17); Calcium 9.1 mg/dL (8.4-10.2); Carbon Dioxide 28 mmol/L (22-32); Chloride 105 mmol/L (98-107); Estimated Glomerular Filt Rate > 60.0 mL/min (>60); Globulin 3.1 g/dL (1.7-4.1); Glucose 88 mg/dL (70-100); HEMOLYSIS < 15 (0-50); Potassium 4.7 mmol/L (3.4-5.1); Sodium 139 mmol/L (137-145); Total Protein 7.2 g/dL (6.3-8.2)
[2019-07-25 13:06] VITALS: BP 111/66; PULSE 70; RESP 16; O2SAT 100
[2019-07-25 13:10] LABS: Amorphous Sediment Urine 2+; Bacteria Urine Moderate (10-30); Culture Indicated Urine Specimen Cultured; RBC Urine 30-100/HPF (0-5/HPF); Squamous Epithelial Cell Urine 1-5 /HPF (0-5/HPF); WBC Urine 5-10/HPF (0-5/HPF)
== END 2019-07-25 13:10 | disposition home or self-care (01) ==
PROVIDERS: Emergency Provider Nurse Practitioner; Family Provider Family Medicine; PCP Family Medicine
DX: N20.0 Calculus of kidney (principal)
CPT/HCPCS: 36415; 80053; 81003; 81015; 85025; 87086; 96360; 99284; J1170; J2405

== ENCOUNTER 2019-08-27 06:50 | Day surgery (SDC) | payer OTHER, SELFPAY ==
[2019-08-17 14:21] VITALS: BMI 33.5
[2019-08-27] VITALS (8 sets, daily range): BP systolic 109–131; BP diastolic 60–94; PULSE 65–85; RESP 12–20; TEMP 36–36.6; O2SAT 98–100; BMI 33.5
--- NOTE | 2019-08-27 | PATH_ITS ---
[facility] Accession Number: [id number] . 01 Material submitted: . fallopian tube - BILATERAL FALLOPIAN TUBES . 02 Diagnosis: Bilateral Fallopian Tubes, Bilateral Salpingectomy: Complete cross sections of fallopian tubes x2 with no significant histomorphologic abnormality; negative for atypia or malignancy. . MRV 08/30/2019 1628 Local . 02 Electronically signed: . Vaishali Dennis MD, Pathologist NPI- [id number] . 01 Gross description: . Received one formalin-filled container, labeled with the patient's name and labeled bilateral fallopian tubes. The specimen consists of two fimbriated, cylindrical-shaped portions of tissue. The first measures 4.0 x 0.5 x 0.5 cm; inked blue. Four enrollment representative sections are submitted in cassette A1. The second piece measures 4.6 x 0.7 x 0.5 cm; inked black. Four enrollment representative sections are submitted in cassette A2. ([id number]) /Marcello 08/28/2019 0822 Local . 02 Pathologist provided ICD-10: Z30.2 . 02 CPT . 803956 Performed at: 01 [facility] [address], [place], [place] [id number] MD Hector Reeves MD Phone: [phone] Performed at: 02 [facility] [address] [place], [place] [id number] MD Kia Starr MD Phone: [phone]
[2019-08-27] MEDS: LACTATED RINGERS 1,000 ML 100 ML IV (07:05)
--- NOTE | 2019-08-27 07:43 | PM.PREOP ---
Pre-operative Note Interval Note History & Physical reviewed/Exam performed by Physician: Yes Changes to H&P: No
--- NOTE | 2019-08-27 08:20 | SUR.OPER ---
Lithotomy on padded OR bed, head on pillow, Right arm secured on padded arm board at <90 degrees abduction, Left arm padded and tucked at side. Legs secured in padded yellow fins stirrups.
[2019-08-27] MEDS: LIDOCAINE 1% 30 ML INJ (08:27)
[2019-08-27] MEDS: LACTATED RINGERS 1,000 ML 42 ML IV (08:58)
--- NOTE | 2019-08-27 09:19 | PM.OP.1 ---
Operative Date/Time/Diagnoses Date of procedure: 08/27/19 Time of procedure: 07:45 Pre-op diagnosis: Desire for permanent sterilization, history of heavy menses. Post-op diagnosis: same Procedure & Clinicians Procedure: Laparoscopic bilateral salpingectomy, removal and replacement of Mirena IUD. Same procedure as scheduled: Yes Indications: Desire for permanent sterilization, history of heavy menses managed by Mirena IUD. Surgeon: Monique Mariano Yard Demurrage Clerk: Miguelito Corona Anesthesia Type: General Operative Notes Findings: Normal vulva, vagina, cervix. Right ovary with 2 cm simple cyst with corpus luteum, left ovary normal, tubes and uterus normal. Small omental adhesion at prior section site, abdominal survey otherwise normal a beginning and end of case. Closure Type: primary Specimen(s): other (Bilateral fallopian tubes) Applied: catheter Estimated Blood Loss (mL): 20 Procedure in detail: After proper consents were obtained and a test was negative, the patient was taken to the operating room where general anesthesia was successfully obtained. She was placed in the dorsal lithotomy position and prepped and draped in the normal sterile fashion. A Claudio catheter was inserted in the bladder. A speculum was placed in the patient's vagina, where the cervix was visualized. The ring forceps was used to grasp the visible IUD strings and remove the patient's Mirena in 1 piece. A tenaculum was placed on the anterior lip of the cervix, and Hegar dilators used to dilate the cervix to 7 mm. A Zumi manipulator was placed within the uterus and the balloon inflated with ease. This tenaculum was removed from the cervix, and the speculum removed from the vagina. Attention was then turned to the abdomen, where 1 cc of 1% lidocaine was infiltrated just inferior to the umbilicus. A scalpel used to make a 5 mm skin incision, and towel clamps were applied on either side of the incision and used to elevate the abdominal wall. A Veress needle was gently introduced and the a drop of saline used to confirm intraperitoneal placement. Gas tubing was attached, and CO2 was used to insufflate the abdomen to pressure of 15 mm of mercury. A 5 mm trocar and sleeve were advanced into the abdomen, the trocar removed, and a 5 mm laparoscoped used to confirm intraperitoneal placement. An abdominal survey was normal at this time, and 5 mm trocars were introduced on the right and left sides of the patient's abdomen in line with the umbilicus under direct visualization with the same procedure as above. The patient was placed in moderate Trendelenburg positioning and the pelvis cleared of all bowel, and a bowel grasper was used to elevate the right fallopian tube. A PK device was used to cauterize and cut the mesosalpinx just inferior to the fallopian tube, and the fallopian tube was amputated from the uterus with the same device. Good hemostasis was noted. Attention was then turned to the patient's left side, where the same procedure was performed without complication. Good hemostasis was noted. Both fallopian tubes were removed via the lateral ports, and an abdominal survey was performed at the end of the case and found to be normal. The ports were removed from the abdomen and the air allowed to escape, and the incision sites were closed with 1 stitch of 4 0 Monocryl at each site. Steri-Strips and bandages were applied over each port site, with good hemostasis at each. Attention was then returned to the perineum, where the speculum was reinserted in the vagina. The uterine manipulator was deflated and removed, and a tenaculum used to grasp the anterior lip of the cervix. The uterus was gently sounded to 7 cm, and the Mirena inserted without difficulty using the Mirena insertion device. The strings were trimmed to 2 cm. The tenaculum was removed from the anterior lip of the cervix with good hemostasis of the tenaculum sites. The speculum was removed from the vagina, and the Claudio catheter was removed. The patient tolerated the procedure well, was taken to the PACU in stable condition. Complications: none Post-operative Condition: stable Disposition: PACU Plan for aftercare: The patient and her were instructed to use Motrin and expect mild to moderate vaginal bleeding. Postoperative precautions were discussed, the patient has a history of severe postoperative nausea and was supplied with with ODT Zofran. All questions were answered.
[2019-08-27] MEDS: HYDROMORPHONE 2 MG INJ IV ×2 (09:32→09:40)
[2019-08-27] MEDS: OXYCODONE/ACETAMINOPHEN 5/325 TABLET 1 TAB PO (09:48)
--- NOTE | 2019-08-27 10:53 | SUR.PHASEII ---
Addendum entered by Safia Juarez R.N. 08/27/19 10:59: Two tiny red spots on arabella-pad Original Note: 1045 Pt requested to go home, confirmed w/Meena Land RN that patient may go. Alert, oriented, pain 2/10 w/mild cramping. Skin warm and dry, Resp unlabored, no nausea, no vag flow.
== END 2019-08-27 10:55 | disposition home or self-care (01) ==
PROVIDERS: Family Provider Family Medicine; PCP Family Medicine; Visit Provider Obstetrics & Gynecology
PROC: (CPT 58661; principal; 2019-08-27 07:45)
PROC: (CPT 58661; 2019-08-27 07:45)
DX: Z30.2 Encounter for sterilization (principal); Z30.433 Encounter for removal and reinsertion of intrauterine contraceptive device; N83.11 Corpus luteum cyst of right ovary; K66.0 Peritoneal adhesions (postprocedural) (postinfection)
CPT/HCPCS: 58661; 58301; 58300; J0330; J1100; J1170; J1885; J2405; J2704; J2765; J3010; J7298

== ENCOUNTER → 2020-08-22 16:03 | Outpatient (CLI) | payer OTHER, SELFPAY ==
[2020-08-22 16:45] LABS: COVID19 -Nasal RAPID Negative (Negative)
== END ==
PROVIDERS: Family Provider Family Medicine; PCP Family Medicine; Visit Provider Obstetrics & Gynecology
DX: Z20.822 Contact with and (suspected) exposure to COVID-19 (principal)
CPT/HCPCS: 87635

== ENCOUNTER 2020-08-24 08:29 | Day surgery (SDC) | payer OTHER, SELFPAY ==
[2020-08-24] VITALS (17 sets, daily range): BP systolic 107–141; BP diastolic 51–73; PULSE 85–100; RESP 10–19; TEMP 36.3–37.1; O2SAT 94–100; BMI 32.5
--- NOTE | 2020-08-24 | PATH_ITS ---
[facility] Accession Number: [id number] . 01 Material submitted: . uterus - UTERUS AND PIECES OF BILATERAL FALLOPIAN TUBES . 02 Diagnosis: Uterus and Pieces of Bilateral Fallopian Tubes, Hysterectomy and Completion Bilateral Salpingectomy: 1. Weak proliferative endometrium with pseudodecidualization, consistent with exogenous hormone effect. 2. Superficial adenomyosis. 3. Multiple detached fragments of blood vessels and myometrium. -No tubal epithelium identified. 5. No evidence of neoplasia or hyperplasia. V 08/30/2020 1605 Local . 02 Electronically signed: . Kia Starr MD, Pathologist NPI- [id number] . 01 Gross description: . The specimen is received in formalin, labeled uterus and pieces of fallopian tube and consists of a 45 gram fragmented uterus measuring 10.0 x 7.0 x 4.7 cm in aggregate. A cervix is not identified. The serosa is roberts-pink and smooth. There is a scant amount of identifiable roberts-pink endometrium measuring 0.1 cm in thickness. The myometrium is roberts-pink and trabeculated. Also received are multiple roberts-pink fragments of soft tissue which on cut surface appear to be vessels and possible fragments of fallopian tubes. Multigraph Operator sections are submitted. . A1-A4: uterus to include candidate endometrium, myometrium and serosa. A5: additional soft tissue fragments, entirely submitted. A6-A9: additional sections of uterus. ([id number]) /MRV 08/29/2020 1314 Local . 02 Pathologist provided ICD-10: N93.9, N80.0 . 02 CPT . 912506 Performed at: 01 [facility] [address] [id number] MD Hector Reeves MD Phone: [phone] Performed at: 02 [facility] [address] [place] [id number] MD Kia Starr MD Phone: [phone]
[2020-08-24] MEDS: LACTATED RINGERS 1,000 ML 100 ML IV ×2 (08:52→11:16)
--- NOTE | 2020-08-24 09:36 | PM.PREOP ---
Pre-operative Note COVID-19 COVID-19 status: Negative Result date/Date tested (Pos, Neg/Pending): 08/22/20 Interval Note History & Physical reviewed/Exam performed by Physician: Yes Changes to H&P: No
[2020-08-24] MEDS: APREPITANT 40 MG CAPSULE PO (09:44)
[2020-08-24] MEDS: MIDAZOLAM 2 MG/2 ML VIAL IV (09:44)
[2020-08-24] MEDS: CEFAZOLIN 2 GM/100 ML FROZ.PIGGY IV (09:56)
--- NOTE | 2020-08-24 10:48 | SUR.OPER ---
Lithotomy on padded OR bed. [place]eck Pad Positioner under torso. Head on pillow, arms padded and tucked at sides. Legs secured in padded yellow fins stirrups.
[2020-08-24] MEDS: BUPIVACAINE 0.25% W/ EPI (PF) 10 ML VIAL 30 ML INJ (11:03)
[2020-08-24] MEDS: ROPIVACAINE 0.2% PF 2 MG/ML 10ML AMP 20 ML INJ (11:22)
--- NOTE | 2020-08-24 11:41 | PM.OP.1 ---
Operative Date/Time/Diagnoses Date of procedure: 08/24/20 Time of procedure: 10:00 Pre-op diagnosis: Abnormal uterine bleeding Post-op diagnosis: same Procedure & Clinicians Procedure: Laparoscopic supracervical hysterectomy Same procedure as scheduled: Yes Indications: Abnormal uterine bleeding Surgeon: Monique Mariano Certified Control Systems Technician: Valeria Perez Anesthesia Type: General Operative Notes Findings: Normal uterus and ovaries. Omental adhesions cephalad to port site locations. Otherwise normal abdominal survey beginning and end of case. Closure Type: primary Specimen(s): other (Uterus, remnants of fallopian tube) Estimated Blood Loss (mL): 25 Procedure in detail: After proper consents were obtained, the patient was taken to the operating room. General anesthesia was induced, and she was placed in the dorsal lithotomy position and prepped and draped in the normal sterile fashion. A lucio catheter was placed, and a speculum placed in the patient's vagina. A single tooth tenaculum was applied to the anterior lip of the cervix, and hegar dilators used to dilate the cervix to 6mm with gentle pressure. IUD strings were not initially visible, but the IUD was able to be grasped and removed with polyp forceps. A uterine manipulator was gently inserted and the balloon inflated to 5ccs. The tenaculum and speculum were removed from the vagina. Attention was then turned to the abdomen, where 1cc of .25% marcaine with epinephrine was used to infiltrate the skin just below the umbilicus. A scalpel was used to make a 5mm incision, towel clamps were applied and used to elevate the anterior abdominal wall, and a Veress needle gently inserted into the abdomen. Intraperitoneal placement was confirmed with a drop of normal saline passed through the veress needle with gravity, and CO2 used to insufflate the abdomen to 15mmHg. A 5mm trocar and sleeve were placed into the abdomen through this incision, using the towel clamps to elevate the abdominal wall, and intraperitoneal placement was confirmed visually with insertion of the laparoscope. Abdominal survey at this time was normal except for the above finding, and lateral ports were placed under direct visualization. These were placed on the left and right, 8cm from the umbilicus and after infiltration of 1mm of local anesthetic as above. The patient was placed in trendelenburg position, and a blunt probe used to gently push the bowel out of the pelvis. The ovaries and fallopian tube remnants appeared normal bilaterally. A atraumatic grasper was used to elevate uterus by grasping the remnant of the right fallopian tube, and a PK device was used to transect and cut the uteroovarian ligament and round ligaments. The anterior and posterior leaflets of the broad ligament and skeletonized and the vesicouterine peritoneum identified. This was transected and a bladder flap created with the PK device and gentle traction. The uterine arteries were identified, and cauterized and cut at the level of the internal os. The same procedure was performed on the patient's left, without complication. The Ender loop was inserted into the abdomen, and placed around the uterus at the level of the internal os. After careful inspection for proper placement anteriorly and posteriorly, this device was used to amputate the uterine fundus without complication. The PK device was used to ablate the cervical os, and hemostasis achieved where necessary with the PK device. Attention was then turned to the abdominal wall, where .25% marcaine with epinephrine was used to infiltrate a midline area 2cm above the pubic symphesis. A scalpel was used to make a 3cm minilaparotomy, and a 15mm trocar and sleeve inserted under direct visualization into the abdominal cavity. A 12mm endocatch bag was placed through this port under direct visualization, and carefully deployed into the abdomen. The uterus was placed in the bag, and the bag was closed and removed under direct visualization of all parts of the bag. The open end of the bag was removed through the port, the port was removed, and the open end of the endocatch bag brought through the incision. A small Kyle device was inserted to protect the incision and skin, and the uterus was brought to the opening of the incision and carefully hand morcellated out through the incision using a scalpel. After removal of the uterus, the kyle device and endocatch bag were removed. The fascia at the minilaparotomy incision was closed using 0 vicryl in a running fashion. The abdomen was re-insufflated, hemostasis at the operative sites assured, and a repeat abdominal survey was normal. 30 cc of dilute ropivacaine was applied over the surgical sites intra-abdominally. The laparoscope was removed from the abdomen, the insufflating gas allowed to escape, and the ports removed. an interrupted suture was used at the mini-laparotomy to close the subcutaneous space in an interrupted fashion, and the skin at all 4 incisions closed with 4-0 biosyn, then covered with steri strips and bandages. The lucio catheter was removed from the bladder. The patient tolerated the procedure well, all counts were correct, 2g of Ancef were given at the beginning of the case. The patient was transported to PACU in stable condition. Dr. Perez was present throughout the case, and her assistance was instrumental to being able to achieve proper visualization and perform the case. IVF: 1200ccs LR UOP: 100ccs yellow clear urine EBL: 25ccs Complications: none Post-operative Condition: stable Disposition: PACU Plan for aftercare: Patient transferred to floor per usual protocol
[2020-08-24] MEDS: OXYCODONE/ACETAMINOPHEN 5/325 TABLET 1 TAB PO ×2 (12:18→12:47)
--- NOTE | 2020-08-24 12:28 | SUR.PHASEI ---
Addendum entered by Mark Arnold R.N. 08/24/20 12:48: Unable to obtain any IV access. Pt given PO pain medication and states that she is tolerating it all ok. Original Note: IV access not working, catheter bent on top of skin under dressing, unable to repair. IV access removed, attempted to insert new IV access x 2, unable to find adequate vein or advance catheter. Requested another RN to insert IV, multiple attempts made, no IV access obtained. Requested a different RN to insert IV, after multiple attempts IV access obtained. Pt tolerated well.
--- NOTE | 2020-08-24 15:19 | PC.NURSE ---
Claudio removed 1500; pt ambulating in hallway; mild pain to abdomen; drsg changed to umbilicus and gauze/tegaderm applied
[2020-08-24] MEDS: OXYCODONE IR 5 MG TABLET PO (16:26)
--- NOTE | 2020-08-24 17:36 | PM.DS.1 ---
History of Present Illness History of Present Illness Date Patient Seen: 08/24/20 Time Patient Seen: 17:51 Chief complaint: OPB Narrative: This patient was 40-year-old who presented with a history of abnormal uterine bleeding not responsive to an IUD. She was taken for laparoscopic supracervical hysterectomy, which was uncomplicated. On the evening of postop day 0, the patient was meeting postoperative goals including voiding, ambulating, tolerating p.o., good pain control on p.o. pain medications. The patient strongly desired discharge home, and this was achieved after precautions discussed. Discharge Providers Provider Discharge Date: 08/24/20 Primary care physician: Miguel Nettles MD Discharge provider: Monique Mariano MD Summary Hospital Course Discharge Diagnosis: Status post laparoscopic hysterectomy Hospital Course: This patient was admitted for and underwent uncomplicated laparoscopic supracervical hysterectomy. She was discharged home as thyroid on postop day 0 after meeting all postoperative goals. Status at Discharge Cognitive/behavioral status at discharge: oriented Functional status at discharge: independent ambulation Overall status at discharge: patient is progressing back to baseline Time Spent with Patient Time spent: Less than 30 minutes Exam Vital Signs (past 8 hours): - 08/24/20 11:43 08/24/20 11:48 08/24/20 11:52 Temperature 98.2 F Pulse Rate 96 H 100 H 95 H Respiratory Rate 18 19 15 Blood Pressure 141/66 H 119/55 L 118/62 Pulse Oximetry 95 98 100 08/24/20 11:57 08/24/20 12:02 08/24/20 12:07 Temperature Pulse Rate 94 H 91 H 94 H Respiratory Rate 15 12 13 Blood Pressure 124/55 L 120/56 L 124/62 Pulse Oximetry 97 98 97 08/24/20 12:12 08/24/20 12:17 08/24/20 12:22 Temperature Pulse Rate 93 H 93 H 90 Respiratory Rate 14 11 L 10 L Blood Pressure 126/61 109/51 L 126/73 Pulse Oximetry 98 96 98 08/24/20 12:27 08/24/20 12:49 08/24/20 13:10 Temperature 97.7 F 98.8 F Pulse Rate 89 92 H 87 Respiratory Rate 11 L 12 14 Blood Pressure 132/59 L 109/51 L 113/62 Pulse Oximetry 98 99 97 08/24/20 13:40 08/24/20 14:10 08/24/20 15:10 Temperature 98.5 F 97.9 F 97.8 F Pulse Rate 94 H 87 90 Respiratory Rate 15 16 16 Blood Pressure 107/73 108/68 115/55 L Pulse Oximetry 95 94 98 08/24/20 16:25 Temperature 97.8 F Pulse Rate 85 Respiratory Rate 16 Blood Pressure 126/60 Pulse Oximetry 97 Oxygen Delivery Method Room Air Const General: cooperative, healthy appearing and comfortable Resp Effort & Inspection: normal respiratory effort Auscultation: clear to auscultation bilaterally Cardio Rate: regular rate Rhythm: regular rhythm GI Inspection: incision (Bandages replaced, incisions intact with no active bleeding.) Palpation: soft and No tender Skin General: no rashes or lesions noted Extrem General: normal to inspection [facility] Medical History Abnormal uterine bleeding Irregular menstrual cycle (~1996) Left ovarian cyst Request for sterilization Surgical History Anesthesia Avulsion, finger tip History of bilateral salpingectomy History of History of cholecystectomy (~01/2003) History of failed repair of rotator cuff History of repair of left rotator cuff Family History Grandmother Dementia Social History household members: significant other and family Smoking Status: Current every day smoker alcohol intake: current Discharge Assessment & Plan Assessment and Plan Assessment: This patient is doing well status post her hysterectomy, meeting postoperative goals appropriately. Patient strongly desires discharge home, and precautions for return were discussed. Plan of Treatment: Discharge home with outpatient follow-up. Discharge Plan Discharge Plan Patient Disposition: Home Discharge orders & Medications Discharge Orders: Discharge (Order); Ordered 08/24/20 Ordered By: Monique Mariano Prescriptions: New oxycodone 5 mg tablet 5 mg PO Q6H PRN (Reason: pain) Qty: 14 RF: 0 diazepam [Valium] 2 mg tablet 2 mg PO TID PRN (Reason: anxiety) Qty: 3 RF: 0 Continued trazodone 50 mg tablet 50 mg PO BEDTIME PRN (Reason: Sleep) RF: 0 sertraline [Zoloft] 50 mg tablet 75 mg PO DAILY RF: 0 Follow up/Referrals: Miguel Nettles MD [Primary Care Provider] - Monique Mariano MD [Physician] - 2 Weeks (telehealth post op visit) Diet/Activity/Treatments Diet: Regular Activity: Nothing in the vagina for 6 weeks. Avoid lifting more than 10 pounds for 6 weeks. If you have increasing bleeding, fevers, chills, nausea, vomiting, pain, bleeding or discharge, or any other symptoms, call or come to the emergency department nearest you. Skin/Wound/Dressing Care Report to your healthcare provider any signs of infection, such as:: chills, fever, night sweats, increased pain, unusual drainage and unusual redness Dressing: Remove tegaderm and gauze in 1 day, and steri strips in 1 week. Keep area clean and dry. Let water run over incisions in the shower, do not rub. Visit Report/Discharge Packet Instructions: DI for Hysterectomy, DI for Laparoscopy Stand Alone Forms: Surgery Discharge Discharge Data Primary Care Provider: Miguel Nettles Attending Provider: Monique Mariano Quality VTE Deep Vein Thrombosis/Pulmonary Embolism Present on Admission: No
--- NOTE | 2020-08-24 18:25 | PC.NURSE ---
Discharge/Evening Shift Note- Patient discharge home per . Discharge instructions and education reviewed with patient and signed. Patient dressed self and packed up all personal belongings. Patient left via wheelchair with spouse to private car with all personal belongings at 1825.
== END 2020-08-24 18:25 | disposition home or self-care (01) ==
LOC: OR 08:30 → AC 08:31
PROVIDERS: Family Provider Family Medicine; PCP Family Medicine; Referring Provider Family Medicine; Visit Provider Obstetrics & Gynecology
PROC: 0UT94ZL Resection of Uterus, Supracervical, Percutaneous Endoscopic Approach (ICD-10-PCS; CPT 58542; principal; 2020-08-24 09:45)
DX: N80.0 Endometriosis of uterus (principal); F17.210 Nicotine dependence, cigarettes, uncomplicated
CPT/HCPCS: 58542; J0690; J1170; J2250; J2795; J3010; J8501